=== PATIENT | female | born 1995 | race Caucasian/White ===

== ENCOUNTER 2016-10-26 17:03 | Emergency (ER) | payer MEDICAID ==
[2016-10-26 17:28] VITALS: BP 127/80
[2016-10-26] MEDS ORDERED: Diphtheria,Pertussis(Acell),Tetanus Vaccine 0.5 ML SDV IM ONE (18:47)
[2016-10-26] MEDS ORDERED: Bacitracin Oint 1 GM U/D Packet TOP ONE (19:43)
--- NOTE | 2016-10-26 19:43 | EDM.PDOC ---
ED HPI GENERAL MEDICAL PROBLEM - General Chief Complaint: Laceration Stated Complaint: CUT RT HAND Time Seen by Provider: 10/26/16 18:46 Source of Information: Reports: Patient History Limitations: Reports: No Limitations - History of Present Illness INITIAL COMMENTS - FREE TEXT/NARRATIVE: This patient was removing or opening a window when the glass broke and she got lacerations on her right wrist and right fifth finger. This happened just prior to arrival. Last tetanus about 2005. 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: Endocrine/Metabolic History: Reports: Hyperthyroidism - Infectious Disease History Infectious Disease History: Reports: Chicken Pox - Past Surgical History GI Surgical History: Reports: None Social & Family History - Family History Family Medical History: Noncontributory - Tobacco Use Smoking Status *Q: Never Smoker Years of Tobacco use: 10 Used Tobacco, but Quit: Yes Month Tobacco Last Used: dec Second Hand Smoke Exposure: No - Alcohol Use Days Per Week of Alcohol Use: 2 Number of Drinks Per Day: 4 Total Drinks Per Week: 8 - Recreational Drug Use Recreational Drug Use: No Drug Use in Last 12 Months: Yes Recreational Drug Type: Reports: Oxycodone ED ROS GENERAL - Review of Systems Review Of Systems: ROS reveals no pertinent complaints other than HPI. ED EXAM, SKIN/RASH Exam: See Below Exam Limited By: No Limitations General Appearance: Alert, WD/WN Extremities: Other (There is a laceration to the dorsum of the right wrist it's approximately 2 cm long, transverse, the proximal edge is a little bit roughened with a short T like extension proximally just a few millimeters. The wound is clean and superficial. There is a small arrowhead shaped flap to the dorsum of the right fifth finger it's over the PIP joint very superficial the point points proximally.) Neurological: No Motor/Sensory Deficits Course - Vital Signs Text/Narrative:: Procedure: Laceration repair Both lacerations were anesthetized with a total of approximately 3 mL of 1% plain lidocaine. The wound to the wrist was then scrubbed and copiously flushed with sterile water. It was palpated for any presence of any foreign body and there was none. The wound was then closed with a running 5-0 nylon with a single [id number] to bring the T together. Good cosmetic result. The small arrowhead shaped flap of the index finger was closed with a single stitch of 5- 0 nylon. Wounds were then cleaned some antibody ointment applied and then covered with a dressing. Wound care discussed. Last Recorded V/S: Last Vital Signs Temp 37.3 C 10/26/16 18:20 Pulse 127 H 10/26/16 18:20 Resp 16 10/26/16 18:20 BP 127/80 10/26/16 18:20 Pulse Ox 99 10/26/16 18:20 - Orders/Labs/Meds Orders: Active Orders 24 hr Category Date Time Status Vaccines to be Administered [RC] PER UNIT ROUTINE Care 10/26/16 18:47 Active Meds: Medications Discontinued Medications Generic Name Dose Route Start Last Admin Trade Name Freq PRN Reason Stop Dose Admin Diphtheria/Tetanus/Acell Pertussis 0.5 ml 10/26/16 18:47 10/26/16 19:18 Adacel IM 10/26/16 18:48 0.5 ml .ONCE ONE Administration Lidocaine HCl 5 ml 10/26/16 18:47 10/26/16 19:07 Xylocaine-Mpf 1% INJECT 10/26/16 18:48 5 ml ONETIME ONE Administration Departure - Departure Time of Disposition: 19:41 Disposition: Home, Self-Care 01 Condition: Fair Clinical Impression: Wrist laceration, Finger laceration - Discharge Information Forms: ED Department Discharge Additional Instructions: Remove the dressing tomorrow. Wash with soap and water. Apply antibiotic ointment and a small dressing. Repeat daily. See your doctor for any signs of infection. See your doctor for suture removal in 10 days - My Orders Last 24 Hours: My Active Orders 10/26/16 18:47 Vaccines to be Administered [RC] PER UNIT ROUTINE - Assessment/Plan Last 24 Hours: My Active Orders 10/26/16 18:47 Vaccines to be Administered [RC] PER UNIT ROUTINE
== END 2016-10-26 20:02 | disposition home or self-care (01) ==
LOC: JP.ED 17:03
DX: S61.511A Laceration without foreign body of right wrist, initial encounter (principal); S61.210A Laceration without foreign body of right index finger without damage to nail, initial encounter; K21.9 Gastro-esophageal reflux disease without esophagitis; E05.90 Thyrotoxicosis, unspecified without thyrotoxic crisis or storm; Z23 Encounter for immunization; Z88.1 Allergy status to other antibiotic agents; Z79.899 Other long term (current) drug therapy; W25.XXXA Contact with sharp glass, initial encounter
CPT/HCPCS: 12001; 90471; 90715; 99283; A4217

== ENCOUNTER 2018-09-24 01:37 | Inpatient (IN) | payer MEDICAID ==
[2018-09-24] MEDS ORDERED: fentaNYL 100 MCG/2 ML SDV IVPUSH PRN (02:00)
[2018-09-24] MEDS ORDERED: Sodium Chloride 0.9% 10 ML Syringe FLUSH PRN ×2 (02:00→02:36)
[2018-09-24] MEDS ORDERED: ePHEDrine 50 MG/ML SDV ONE (02:11)
--- NOTE | 2018-09-24 02:21 | PCM.LDHP ---
L&D History of Present Illness - General Date of Service: 09/24/18 (active labor) Admit Problem/Dx: Patient Status Order with Admit Dx/Problem 09/24/18 02:07 Patient Status [ADT] Routine Admission Diagnosis/Problem Admission Diagnosis/Problem Labor established Source of Information: Patient History Limitations: Reports: No Limitations - History of Present Illness Introduction:: 23 year old who is 38 weeks gestation, presents in active labor that started at 2300. ERIN 10/08/18. Labs HIV neg, GBS neg, ABO O neg, Rubella immune Timing/Duration: Reports: minutes: (2-3) Location, : Reports: Abdomen Quality: Reports: Pressure Severity: Severe Improves with: Reports: None Worsens with: Reports: None - Related Data Allergies/Adverse Reactions: Allergies Allergy/AdvReac Type Severity Reaction Status Date / Time erythromycin base Allergy Rash Verified 04/20/18 22:55 Home Medications: Home Meds PNV95/Ferrous Fumarate/FA [ Tablet] 1 each PO DAILY 08/12/15 [History] Methimazole [Tapazole] 1 tab PO DAILY 10/26/16 [History] Past Medical History - Past Health History Medical/Surgical History: Denies Medical/Surgical History Gastrointestinal History: Reports: GERD 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: : 2 Para: 1 LMP (Approximate): Endocrine/Metabolic History: Reports: Hyperthyroidism - Infectious Disease History Infectious Disease History: Reports: Chicken Pox - Past Surgical History GI Surgical History: Reports: None Endocrine Surgical History: Reports: None Social & Family History - Family History Family Medical History: Noncontributory - Caffeine Use Caffeine Use: Reports: Coffee, Tea H&P Review of Systems - Review of Systems: Review Of Systems: See Below General: Reports: No Symptoms HEENT: Reports: No Symptoms Pulmonary: Reports: No Symptoms Cardiovascular: Reports: No Symptoms Gastrointestinal: Reports: No Symptoms Genitourinary: Reports: No Symptoms Musculoskeletal: Reports: No Symptoms Skin: Reports: No Symptoms Psychiatric: Reports: No Symptoms Neurological: Reports: No Symptoms Hematologic/Lymphatic: Reports: No Symptoms Immunologic: Reports: No Symptoms L&D Exam - Exam Exam: See Below - OB Specific Fundal Height In cm: 37 Contraction Intensity: Strong Movement: Active Heart Tones: Present Heart Rate (FHR) Variability: Moderate (6-25 bmp) Presentation: Vertex Estimated Weight: 7 pounds - Middleton Score Middleton Score Cervix Position: Anterior [place] Score Consistency: Soft [place] Score Effacement: >80% [place] Score Dilation: 3-4 cm [place] Score 's Station: -1 ,0 [place] Score Total: 11 - Exam General: Alert, Oriented HEENT: PERRLA, Mucosa Moist & [place] Neck: Supple Lungs: Clear to Auscultation, Normal Respiratory Effort Cardiovascular: Regular Rate, Regular Rhythm GI/Abdominal Exam: Normal Bowel Sounds Rectal Exam: Normal Exam Genitourinary: Normal external exam, Cervical dilitation, Enlarged uterus Back Exam: Normal Inspection Extremities: Normal Inspection, No Pedal Edema, Normal Capillary Refill Skin: Warm Neurological: Cranial Nerves Intact Psychiatric: Alert, Normal Affect, Normal Mood - Patient Data Lab Results Last 24 hrs: Laboratory Results - last 24 hr 09/24/18 Range/Units 01:50 WBC 14.8 H (4.5-11.0) K/uL RBC 3.91 (3.30-5.50) M/uL Hgb 11.6 L (12.0-15.0) g/dL Hct 34.9 L (36.0-48.0) % MCV 89 (80-98) fL MCH 30 (27-31) pg MCHC 33 (32-36) % Plt Count 206 (150-400) K/uL Neut % (Auto) 70 H (36-66) % Lymph % (Auto) 20 L (24-44) % [place] % (Auto) 9 H (2-6) % Eos % (Auto) 1 L (2-4) % Baso % (Auto) 0 (0-1) % Result Diagrams: 09/24/18 01:50 - Problem List (1) SNOMED Code(s): 62369635 ICD Code: Z34.90 - ENCNTR FOR SUPRVSN OF NORMAL , UNSP, UNSP TRIMESTER Status: Acute Current Visit: Yes Qualifiers: Weeks of gestation: 38 weeks Qualified Code(s): Z3A.38 - 38 weeks gestation of (2) Active labor SNOMED Code(s): 670662192 ICD Code: [id number] - Status: Acute Current Visit: Yes Problem List Initiated/Reviewed/Updated: Yes Orders Last 24hrs: Active Orders 24 hr Category Date Time Status Patient Status [ADT] Routine ADT 09/24/18 02:07 Ordered Antiembolic Devices [RC] .Routine Care 09/24/18 02:09 Ordered Communication Order [RC] ASDIRECTED Care 09/24/18 02:07 Ordered Heart Tones [RC] PER UNIT ROUTINE Care 09/24/18 02:07 Ordered Non Stress Test [RC] Click to Edit Care 09/24/18 02:07 Ordered Notify Provider Vital Signs [RC] PRN Care 09/24/18 02:00 Ordered Notify Provider [RC] PRN Care 09/24/18 02:07 Ordered VTE/DVT Education [RC] Click to Edit Care 09/24/18 02:09 Ordered Vital Signs [RC] PER UNIT ROUTINE Care 09/24/18 02:07 Ordered DRUG SCREEN, URINE [URCHEM] Routine Lab 09/24/18 02:00 Ordered UA W/MICROSCOPIC [URIN] Routine Lab 09/24/18 02:00 Ordered Oxytocin/Normal Saline [Pitocin in NS 20 Units/1,000 ML Med 09/24/18 02:10 Ordered ] 20 unit in 1,000 ml IV ONETIME Sodium Chloride 0.9% [Saline Flush] Med 09/24/18 02:00 Ordered 10 ml FLUSH ASDIRECTED PRN fentaNYL [Sublimaze] Med 09/24/18 02:00 Ordered 100 mcg IVPUSH Q1H PRN DVT/VTE Prophylaxis Reflex [OM.PC] Routine Oth 09/24/18 02:00 Ordered Saline Lock Insert [OM.PC] Routine Oth 09/24/18 02:07 Ordered Resuscitation Status Routine Resus Stat 09/24/18 02:00 Ordered Medication Orders Fentanyl (Sublimaze) 100 mcg IVPUSH Q1H PRN PRN Reason: Pain (moderate 4-6) Oxytocin/Sodium Chloride (Pitocin In Ns 20 Units/1,000 Ml) 20 unit in 1,000 mls @ 999 mls/hr IV ONETIME ONE; Protocol Stop: 09/24/18 03:10 Sodium Chloride (Saline Flush) 10 ml FLUSH ASDIRECTED PRN PRN Reason: Keep Vein Open Assessment/Plan Comment:: 09/24/18 38 week IUP, active labor ancipitate a vaginal delivery O neg, rhogam given at 29 weeks GBS negative HIV neg Rubella immune
[2018-09-24] MEDS ORDERED: Ropivacaine 100 ML ONE (02:34)
[2018-09-24] MEDS ORDERED: ePHEDrine 50 MG/ML SDV IVPUSH PRN (02:36)
[2018-09-24] MEDS ORDERED: diphenhydrAMINE 50 MG/ML SDV IVPUSH PRN ×2 (02:36)
[2018-09-24] MEDS ORDERED: Naloxone 0.4 MG/ML SDV IVPUSH PRN (02:36)
--- NOTE | 2018-09-24 03:00 | PCM.PNLD ---
Labor Progress Note - VS & Meds Vital Signs: Last Vital Signs Temp 97.2 F 09/24/18 02:36 Pulse 60 09/24/18 02:36 Resp 16 09/24/18 02:36 BP 115/72 09/24/18 02:36 Pulse Ox 96 09/24/18 02:36 Active Medications: Current Medications Diphenhydramine HCl (Benadryl) 25 mg IVPUSH Q6H PRN PRN Reason: Itching Diphenhydramine HCl (Benadryl) 50 mg IVPUSH Q6H PRN PRN Reason: Itching Ephedrine Sulfate (Ephedrine Sulfate) 10 mg IVPUSH ASDIRECTED PRN PRN Reason: Hypotension Fentanyl (Sublimaze) 100 mcg IVPUSH Q1H PRN PRN Reason: Pain (moderate 4-6) Last Admin: 09/24/18 02:15 Dose: 100 mcg Oxytocin/Sodium Chloride (Pitocin In Ns 20 Units/1,000 Ml) 20 unit in 1,000 mls @ 999 mls/hr IV ONETIME ONE; Protocol Stop: 09/24/18 03:10 Naloxone HCl (Narcan) 0.1 mg IVPUSH ASDIRECTED PRN PRN Reason: Oversedation Sodium Chloride (Saline Flush) 10 ml FLUSH ASDIRECTED PRN PRN Reason: Keep Vein Open Sodium Chloride (Saline Flush) 10 ml FLUSH ASDIRECTED PRN PRN Reason: Keep Vein Open Discontinued Medications Ephedrine Sulfate (Ephedrine Sulfate) Confirm Administered Dose 50 mg .ROUTE .STK-MED ONE Stop: 09/24/18 02:12 Last Admin: 09/24/18 02:42 Dose: Not Given Ropivacaine (Naropin 0.2%) Confirm Administered Dose 100 mls @ as directed .ROUTE .STK-MED ONE Stop: 09/24/18 02:35 - Uterine Contractions Uterine Monitoring Mode: External [place] Contraction Frequency (min): 2-4 Contraction Intensity: Moderate to Strong Uterine Resting Tone: Soft - Monitoring Monitor Mode: Doppler/Auscultation Heart Rate (FHR) Baseline: 140 Heart Rate (FHR) Variability: Moderate (6-25 bmp) Accelerations: Present, 15x15 Decelerations: None Strip Review: Category I - Vaginal Exam Dilation (cm): 6 Effacement (Percent): 90 Station: 1 Cervical Position: Midposition Sterile Vaginal Exam Performed By: Bina Crockett - Labor Progress (Free Text) Labor Progress: active labor Epidural placed Cat one strip. planning for vaginal delivery
--- NOTE | 2018-09-24 04:53 | PCM.PNLD ---
Labor Progress Note - VS & Meds Vital Signs: Last Vital Signs Temp 97.2 F 09/24/18 02:36 Pulse 59 L 09/24/18 04:20 Resp 16 09/24/18 04:20 BP 98/57 L 09/24/18 04:20 Pulse Ox 99 09/24/18 04:20 Active Medications: Current Medications Diphenhydramine HCl (Benadryl) 25 mg IVPUSH Q6H PRN PRN Reason: Itching Diphenhydramine HCl (Benadryl) 50 mg IVPUSH Q6H PRN PRN Reason: Itching Ephedrine Sulfate (Ephedrine Sulfate) 10 mg IVPUSH ASDIRECTED PRN PRN Reason: Hypotension Fentanyl (Sublimaze) 100 mcg IVPUSH Q1H PRN PRN Reason: Pain (moderate 4-6) Last Admin: 09/24/18 02:15 Dose: 100 mcg Naloxone HCl (Narcan) 0.1 mg IVPUSH ASDIRECTED PRN PRN Reason: Oversedation Sodium Chloride (Saline Flush) 10 ml FLUSH ASDIRECTED PRN PRN Reason: Keep Vein Open Sodium Chloride (Saline Flush) 10 ml FLUSH ASDIRECTED PRN PRN Reason: Keep Vein Open Discontinued Medications Ephedrine Sulfate (Ephedrine Sulfate) Confirm Administered Dose 50 mg .ROUTE .STK-MED ONE Stop: 09/24/18 02:12 Last Admin: 09/24/18 02:42 Dose: Not Given Oxytocin/Sodium Chloride (Pitocin In Ns 20 Units/1,000 Ml) 20 unit in 1,000 mls @ 999 mls/hr IV ONETIME ONE; Protocol Stop: 09/24/18 03:10 Ropivacaine (Naropin 0.2%) Confirm Administered Dose 100 mls @ as directed .ROUTE .STK-MED ONE Stop: 09/24/18 02:35 - Uterine Contractions Uterine Monitoring Mode: External [place] Contraction Frequency (min): 2-4 Contraction Duration (sec): 90-110 Contraction Intensity: Strong Uterine Resting Tone: Soft - Monitoring Monitor Mode: Doppler/Auscultation Heart Rate (FHR) Baseline: 140 Heart Rate (FHR) Variability: Moderate (6-25 bmp) Accelerations: Present, 15x15 Decelerations: None Strip Review: Category I - Vaginal Exam Dilation (cm): 9 Effacement (Percent): 100 Station: 1 Cervical Position: Anterior Sterile Vaginal Exam Performed By: Evie Gallardo Vaginal Exam Comment: SROM clear fluid - Labor Progress (Free Text) Labor Progress: epidural working great. mother sleeping intermittently Cat one strip Delivery imitate
[2018-09-24] MEDS ORDERED: Benzocaine 20% Top Spray 56 GM Bottle TOP PRN (06:18)
[2018-09-24] MEDS ORDERED: Lanolin 100% Cream 40 GM Tube TOP PRN (06:18)
[2018-09-24] MEDS ORDERED: Witch Hazel Medicated Pads 100/Jar TOP PRN (06:18)
[2018-09-24] MEDS ORDERED: Acetaminophen 325 MG Tab, 50 Tab Bulk Bottle PO PRN ×2 (06:27→07:17)
[2018-09-24] MEDS ORDERED: Ibuprofen 200 MG Tab, 24 Tab Bulk Bottle PO PRN (06:27)
--- NOTE | 2018-09-24 06:30 | ANES ---
DATE OF SERVICE: 09/24/2018 Ms. Chavez is a 23-year-old female patient, referred to me by Mary Alice Gallardo. I was called to the Labor and Delivery unit to evaluate Ms. Chavez for a labor epidural. She is in active labor and this is her 2nd baby. Risks and benefits of the procedure were explained to the patient. She wished to proceed with a labor epidural. She was placed in a sitting position. Her back was prepped x3 with Betadine, 1% lidocaine skin local was used. The epidural was placed at L3-L4 using a 17-gauge Tuohy needle and loss of resistance technique. The epidural had very good feel throughout, and the epidural space was easily identified. There was negative CSF, negative blood, and negative paresthesias noted. Therefore, catheter was threaded to 13 cm at the skin. There was negative CSF, negative blood, and negative paresthesias in the catheter as well. A 3 mL test dose of 1.5% lidocaine with epinephrine was given and this test dose was negative. The patient was then placed in the supine position after the catheter was secured with Tegaderm and tape. 0.2% ropivacaine bolus of 10 mL was given. The initial bolus had good relief and her vital signs remained stable. Therefore, a 0.2% ropivacaine drip was started at 12 mL/h. She tolerated the procedure very nicely. Her vital signs remained stable throughout the procedure. Nurse was with me for the entire procedure. We will continue to monitor her throughout her Labor and Delivery stay. Deuce Cespedes CRNA /[id number]
--- NOTE | 2018-09-24 07:38 | PCM.DEL ---
L & D Note - General Info Date of Service: 09/24/18 (Childbirth) Mother's Due Date: 10/08/18 - Delivery Note Labor: Spontaneous Delivery Outcome: Livebirth Infant Delivery Method: Spontaneous Vaginal Delivery-Single Delivery Mode: Vacuum Extraction Presentation: Right Occiput Posterior (ROP) Nuchal Cord: Present, Reduced Anesthesia Type: Epidural Amniotic Fluid Description: Clear Episiotomy Type: None Laceration: Other (left labial abrasion) Placenta: Intact, Spontaneous Cord: 3 Vessels Estimated Blood Loss: 200 Resuscitation Needed: No Purcell: Stimulated, Warmed, Taylor Used Provider: Evie Gallardo Score 1 min: 9 Score 5 min: 9 Second Stage Interventions: Reports: Second Nurse Reviewed Contraction Pattern, Pushing Ineffectively, Pushing, McRobert's Position Delivery Comments (Free Text/Narrative):: 09/24/18 This 23 year old G2 now P1 who is 38 weeks gestation presented in active labor. Zita delivered a viable male infant in ROP with vacuum assisted delivery. A nuchal cord was present and reduced at time of delivery. He also had his left hand and arm presenting before his body. He was delivered onto mother's abdomen and he cried spontaneously, He was dried and stimulated, Apgars of 9 & 9, delayed cord clamping and active management of the third stage were also done. He was placed skin to skin The placenta was expressed spontaneously intact. no lacerations were found of the cervix, rectum, perineum. EBL 200cc Mother and baby to post in stable condition. First stage 2230-1130 Second stage 4512-7874 Third stage 3860-0862 Vacuum Extractor Progress Note - Alternative Labor Strategies Considered Alternative Labor Strategies Considered:: Reports: Yes Strategies Considered:: Reports: Contraction Intensity Adequate Indications Considered:: Reports: Yes Time Out:: Reports: Yes - Patient Prepared Patient Prepared:: Reports: Yes Informed Consent:: Reports: Verbal Risks Include:: Reports: Laceration, Shoulder Dystocia, Maternal Injury, Other Anesthesia/Analgesia Adequate:: Reports: Yes - Probability of Success High Probability of Success:: Reports: Yes Weight Estimated:: Reports: AGA Pelvis Adequate:: Reports: Yes Asynclitic:: Reports: No - Application Time Maximum Application Time & Number of Pop-Offs Predetermined:: Reports: Yes Type of Vacuum Used:: Reports: Cup: Mushroom type Vacuum Extraction: Successful - Exit Strategy Exit strategy available:: Reports: Yes and resuscitation teams readily available:: Reports: Yes - General Info Date of Service: 09/24/18 Functional Status: Reports: Pain Controlled - Review of Systems General: Reports: No Symptoms HEENT: Reports: No Symptoms Pulmonary: Reports: No Symptoms Cardiovascular: Reports: No Symptoms Gastrointestinal: Reports: No Symptoms Genitourinary: Reports: No Symptoms Musculoskeletal: Reports: No Symptoms Skin: Reports: No Symptoms Neurological: Reports: No Symptoms Psychiatric: Reports: No Symptoms - Patient Data Vitals - Most Recent: Last Vital Signs Temp 97.2 F 09/24/18 02:36 Pulse 59 L 09/24/18 04:20 Resp 16 09/24/18 04:20 BP 98/57 L 09/24/18 04:20 Pulse Ox 99 09/24/18 04:20 Weight - Most Recent: 131 lb Lab Results Last 24 Hours: Laboratory Results - last 24 hr 09/24/18 09/24/18 09/24/18 Range/Units 01:50 04:00 04:00 WBC 14.8 H (4.5-11.0) K/uL RBC 3.91 (3.30-5.50) M/uL Hgb 11.6 L (12.0-15.0) g/dL Hct 34.9 L (36.0-48.0) % MCV 89 (80-98) fL MCH 30 (27-31) pg MCHC 33 (32-36) % Plt Count 206 (150-400) K/uL Neut % (Auto) 70 H (36-66) % Lymph % (Auto) 20 L (24-44) % [place] % (Auto) 9 H (2-6) % Eos % (Auto) 1 L (2-4) % Baso % (Auto) 0 (0-1) % Urine Color Yellow Urine Appearance Clear Urine pH 8.0 (4.5-8.0) Ur Specific [place] 1.005 L (1.008-1.030) Urine Protein Negative (NEGATIVE) mg/dL Urine Glucose (UA) Normal (NEGATIVE) mg/dL Urine Ketones Negative (NEGATIVE) mg/dL Urine Occult Blood Negative (NEGATIVE) Urine Nitrite Negative (NEGATIVE) Urine Bilirubin Negative (NEGATIVE) Urine Urobilinogen Normal (NORMAL) mg/dL Ur Leukocyte Esterase Negative (NEGATIVE) Urine RBC 0-5 (0-5) Urine WBC 0-5 (0-5) Ur Epithelial Cells Rare Amorphous Sediment Not seen Urine Bacteria Few Urine Mucus Not seen Urine Opiates Screen Negative (NEGATIVE) Ur Oxycodone Screen Negative (NEGATIVE) Urine Methadone Screen Negative (NEGATIVE) Ur Propoxyphene Screen Negative (NEGATIVE) Ur Barbiturates Screen Negative (NEGATIVE) Ur Tricyclics Screen Negative (NEGATIVE) Ur Phencyclidine Scrn Negative (NEGATIVE) Ur Amphetamine Screen Negative (NEGATIVE) U Methamphetamines Scrn Negative (NEGATIVE) Urine MDMA Screen Negative (NEGATIVE) U Benzodiazepines Scrn Negative (NEGATIVE) U Cocaine Metab Screen Negative (NEGATIVE) U Marijuana (THC) Screen Negative (NEGATIVE) Med Orders - Current: Current Medications Acetaminophen (Tylenol Bulk Bottle) 325 - 650 mg PO Q4H PRN PRN Reason: Pain Benzocaine (Ddtw-G-[id number] 20% [place]) 0 gm TOP Q4H PRN PRN Reason: Perineal Comfort Measure Diphenhydramine HCl (Benadryl) 25 mg IVPUSH Q6H PRN PRN Reason: Itching Diphenhydramine HCl (Benadryl) 50 mg IVPUSH Q6H PRN PRN Reason: Itching Emollient Ointment (Lansinoh Hpa) 1 gm TOP ASDIRECTED PRN PRN Reason: Sore Nipples Ephedrine Sulfate (Ephedrine Sulfate) 10 mg IVPUSH ASDIRECTED PRN PRN Reason: Hypotension Fentanyl (Sublimaze) 100 mcg IVPUSH Q1H PRN PRN Reason: Pain (moderate 4-6) Last Admin: 09/24/18 02:15 Dose: 100 mcg Ibuprofen (Motrin Bulk Bottle) 600 mg PO Q6H PRN PRN Reason: Pain Naloxone HCl (Narcan) 0.1 mg IVPUSH ASDIRECTED PRN PRN Reason: Oversedation Sodium Chloride (Saline Flush) 10 ml FLUSH ASDIRECTED PRN PRN Reason: Keep Vein Open Sodium Chloride (Saline Flush) 10 ml FLUSH ASDIRECTED PRN PRN Reason: Keep Vein Open Witch Kate (Tucks) 1 pad TOP ASDIRECTED PRN PRN Reason: Hemorrhoids Discontinued Medications Ephedrine Sulfate (Ephedrine Sulfate) Confirm Administered Dose 50 mg .ROUTE .STK-MED ONE Stop: 09/24/18 02:12 Last Admin: 09/24/18 02:42 Dose: Not Given Oxytocin/Sodium Chloride (Pitocin In Ns 20 Units/1,000 Ml) 20 unit in 1,000 mls @ 999 mls/hr IV ONETIME ONE; Protocol Stop: 09/24/18 03:10 Ropivacaine (Naropin 0.2%) Confirm Administered Dose 100 mls @ as directed .ROUTE .STK-MED ONE Stop: 09/24/18 02:35 - Exam General: Alert, Oriented HEENT: Pupils Equal, Pupils Reactive Neck: Supple Lungs: Clear to Auscultation, Normal Respiratory Effort Cardiovascular: Regular Rate, Regular Rhythm GI/Abdominal Exam: Normal Bowel Sounds, Soft (Female) Exam: Normal External Exam, Enlarged Uterus, Vaginal Bleeding Back Exam: Normal Inspection Extremities: Normal Inspection, No Pedal Edema Skin: Warm Neurological: No New Focal Deficit Psy/Mental Status: Alert, Normal Affect - Problem List & Annotations (1) SNOMED Code(s): 19672453 Code(s): Z34.90 - ENCNTR FOR SUPRVSN OF NORMAL , UNSP, UNSP TRIMESTER Status: Acute Current Visit: Yes Qualifiers: Weeks of gestation: 38 weeks Qualified Code(s): Z3A.38 - 38 weeks gestation of (2) Active labor SNOMED Code(s): 748335249 Code(s): UEG9050 - Status: Acute Current Visit: Yes (3) Vaginal delivery SNOMED Code(s): 928404542 Code(s): O80 - ENCOUNTER FOR FULL-TERM UNCOMPLICATED DELIVERY Status: Acute Current Visit: Yes - Problem List Review Problem List Initiated/Reviewed/Updated: Yes - My Orders Last 24 Hours: My Active Orders 09/24/18 02:00 Notify Provider Vital Signs [RC] PRN Sodium Chloride 0.9% [Saline Flush] 10 ml FLUSH ASDIRECTED PRN fentaNYL [Sublimaze] 100 mcg IVPUSH Q1H PRN DVT/VTE Prophylaxis Reflex [OM.PC] Routine Resuscitation Status Routine 09/24/18 02:07 Communication Order [RC] ASDIRECTED Heart Tones [RC] PER UNIT ROUTINE Non Stress Test [RC] Click to Edit Notify Provider [RC] PRN Vital Signs [RC] PER UNIT ROUTINE Saline Lock Insert [OM.PC] Routine 09/24/18 02:09 Antiembolic Devices [RC] .Routine VTE/DVT Education [RC] Click to Edit 09/24/18 02:36 Communication Order [RC] ROUTINE Communication Order [RC] ROUTINE Communication Order [RC] ROUTINE Oxygen Therapy [RC] ASDIRECTED PCEA Epidural [RC] ASDIRECTED PCEA Epidural [RC] ASDIRECTED Peripheral IV Care [RC] . DIRECTED Pulse Oximetry [RC] ASDIRECTED Vital Signs [RC] PER UNIT ROUTINE Naloxone [Narcan] 0.1 mg IVPUSH ASDIRECTED PRN Sodium Chloride 0.9% [Saline Flush] 10 ml FLUSH ASDIRECTED PRN diphenhydrAMINE [Benadryl] 25 mg IVPUSH Q6H PRN diphenhydrAMINE [Benadryl] 50 mg IVPUSH Q6H PRN ePHEDrine [ePHEDrine sulfate] 10 mg IVPUSH ASDIRECTED PRN Epidural Catheter Management [OM.PC] Routine Peripheral IV Insertion Pediatric [OM.PC] Routine 09/24/18 06:18 Up ad Jazmine [RC] ASDIRECTED RHIG WORKUP, [BBK] Routine Benzocaine [Szgb-J-Vzmpvlg 20% [place]] See Dose Instructions TOP Q4H PRN Lanolin [Lansinoh HPA] 1 gm TOP ASDIRECTED PRN Witch Kate [Tucks] 1 pad TOP ASDIRECTED PRN Assess Lochia [WOMSER] Per Unit Routine Assess Uterine Involution [WOMSER] Per Unit Routine 09/24/18 06:23 Patient Status [ADT] Routine Vital Signs [RC] PFP 09/24/18 06:24 Ice Therapy [OM.PC] Per Unit Routine Perineal Care [OM.PC] Per Unit Routine Peripheral IV Discontinue [OM.PC] Routine Sitz Bath [OM.PC] Per Unit Routine 09/24/18 06:27 Ibuprofen [Motrin Bulk Bottle] 600 mg PO Q6H PRN 09/24/18 07:17 Acetaminophen [Tylenol Bulk Bottle] 325 - 650 mg PO Q4H PRN 09/24/18 Breakfast Regular Diet [DIET] 09/25/18 05:11 CBC WITH AUTO DIFF [HEME] AM - Assessment Assessment:: 09/24/18 23 yr old with vacuum assist, ROP - Plan Plan:: 09/24/18 38 week IUP, active labor ancipitate a vaginal delivery O neg, rhogam given at 29 weeks GBS negative HIV neg Rubella immune 09/24/18 Routine post care. support breast feeding 24-48 hour stay
--- NOTE | 2018-09-25 08:43 | PCM.PNPP ---
- General Info Date of Service: 09/25/18 Functional Status: Reports: Pain Controlled - Review of Systems General: Reports: No Symptoms HEENT: Reports: No Symptoms Pulmonary: Reports: No Symptoms Cardiovascular: Reports: No Symptoms Gastrointestinal: Reports: No Symptoms Genitourinary: Reports: No Symptoms Musculoskeletal: Reports: No Symptoms Skin: Reports: No Symptoms Neurological: Reports: No Symptoms Psychiatric: Reports: No Symptoms - General Info Date of Service: 09/25/18 - Patient Data Vital Signs - Most Recent: Last Vital Signs Temp 35.9 C 09/25/18 03:54 Pulse 58 L 09/25/18 03:54 Resp 16 09/25/18 03:54 BP 94/56 L 09/25/18 03:54 Pulse Ox 99 09/25/18 03:54 Weight - Most Recent: 59.421 kg I&O - Last 24 Hours: Intake & Output 09/24/18 09/25/18 09/25/18 22:59 06:59 14:59 Intake Total 1000 Balance 1000 Lab Results - Last 24 Hours: Laboratory Results - last 24 hr 09/25/18 Range/Units 06:17 WBC 14.0 H (4.5-11.0) K/uL RBC 3.42 (3.30-5.50) M/uL Hgb 10.2 L (12.0-15.0) g/dL Hct 31.3 L (36.0-48.0) % MCV 92 (80-98) fL MCH 30 (27-31) pg MCHC 33 (32-36) % Plt Count 174 (150-400) K/uL Neut % (Auto) 71 H (36-66) % Lymph % (Auto) 18 L (24-44) % [place] % (Auto) 9 H (2-6) % Eos % (Auto) 2 (2-4) % Baso % (Auto) 0 (0-1) % Med Orders - Current: Current Medications Acetaminophen (Tylenol Bulk Bottle) 325 - 650 mg PO Q4H PRN PRN Reason: Pain Last Admin: 09/24/18 09:31 Dose: 650 mg Benzocaine ([place]-R-Boyicmx 20% [place]) 0 gm TOP Q4H PRN PRN Reason: Perineal Comfort Measure Diphenhydramine HCl (Benadryl) 25 mg IVPUSH Q6H PRN PRN Reason: Itching Diphenhydramine HCl (Benadryl) 50 mg IVPUSH Q6H PRN PRN Reason: Itching Emollient Ointment (Lansinoh Hpa) 1 gm TOP ASDIRECTED PRN PRN Reason: Sore Nipples Ephedrine Sulfate (Ephedrine Sulfate) 10 mg IVPUSH ASDIRECTED PRN PRN Reason: Hypotension Fentanyl (Sublimaze) 100 mcg IVPUSH Q1H PRN PRN Reason: Pain (moderate 4-6) Last Admin: 09/24/18 02:15 Dose: 100 mcg Ibuprofen (Motrin Bulk Bottle) 600 mg PO Q6H PRN PRN Reason: Pain Last Admin: 09/24/18 09:30 Dose: 600 mg Naloxone HCl (Narcan) 0.1 mg IVPUSH ASDIRECTED PRN PRN Reason: Oversedation Sodium Chloride (Saline Flush) 10 ml FLUSH ASDIRECTED PRN PRN Reason: Keep Vein Open Sodium Chloride (Saline Flush) 10 ml FLUSH ASDIRECTED PRN PRN Reason: Keep Vein Open Witch Kate (Tucks) 1 pad TOP ASDIRECTED PRN PRN Reason: Hemorrhoids Discontinued Medications Ephedrine Sulfate (Ephedrine Sulfate) Confirm Administered Dose 50 mg .ROUTE .STK-MED ONE Stop: 09/24/18 02:12 Last Admin: 09/24/18 02:42 Dose: Not Given Oxytocin/Sodium Chloride (Pitocin In Ns 20 Units/1,000 Ml) 20 unit in 1,000 mls @ 999 mls/hr IV ONETIME ONE; Protocol Stop: 09/24/18 03:10 Last Admin: 09/24/18 05:40 Dose: 999 mls/hr, 999 mls/hr Ropivacaine (Naropin 0.2%) Confirm Administered Dose 100 mls @ as directed .ROUTE .STK-MED ONE Stop: 09/24/18 02:35 - Interaction Infant Disposition, : [place] in Room with Family Interaction: Holding Infant Infant Feeding: Breastfed ; Nursed Well Support Person: Significant Other - Recovery Exam Fundal Tone: Firm Fundal Level: 1 Fingerbreadths Below Umbilicus Fundal Placement: Midline Lochia Amount: Small Lochia Color: Rubra/Red Perineum Description: Intact, Minimal Bruising/Swelling Episiotomy/Laceration: None Bladder Status: Voiding - Exam General: Alert, Oriented, Cooperative HEENT: Pupils Equal Neck: Supple Lungs: Clear to Auscultation, Normal Respiratory Effort Cardiovascular: Regular Rate, Regular Rhythm GI/Abdominal Exam: Normal Bowel Sounds, Soft, Non-Tender, No Organomegaly, No Distention, No Abnormal Bruit, No Mass, Pelvis Stable Extremities: Normal Inspection, Normal Range of Motion, Non-Tender, No Pedal Edema, Normal Capillary Refill Skin: Warm, Dry, Intact Neurological: No New Focal Deficit Psy/Mental Status: Alert, Normal Affect, Normal Mood - Problem List & Annotations (1) (infant) SNOMED Code(s): 001215941 Code(s): Z78.9 - OTHER SPECIFIED HEALTH STATUS Status: Acute Current Visit: Yes (2) Vacuum-assisted vaginal delivery SNOMED Code(s): 49225834350399396 Code(s): Z37.9 - OUTCOME OF DELIVERY, UNSPECIFIED Status: Acute Current Visit: Yes (3) Vaginal delivery SNOMED Code(s): 369282076 Code(s): O80 - ENCOUNTER FOR FULL-TERM UNCOMPLICATED DELIVERY Status: Acute Current Visit: Yes - Problem List Review Problem List Initiated/Reviewed/Updated: Yes - Assessment Assessment:: 09/24/18 23 yr old with vacuum assist, ROP 09/25/2018 day one well Fundus firm and bleeding decreasing Happy with delivery - Plan Plan:: 09/24/18 38 week IUP, active labor ancipitate a vaginal delivery O neg, rhogam given at 29 weeks GBS negative HIV neg Rubella immune 09/24/18 Routine post care. support breast feeding 24-48 hour stay 09/25/2018 Continue routine care Continue to support and encourage discharge tomorrow
--- NOTE | 2018-09-26 08:24 | PCM.PNPP ---
- General Info Date of Service: 09/26/18 Functional Status: Reports: Pain Controlled - Review of Systems General: Reports: No Symptoms HEENT: Reports: No Symptoms Pulmonary: Reports: No Symptoms Cardiovascular: Reports: No Symptoms Gastrointestinal: Reports: No Symptoms Genitourinary: Reports: No Symptoms Musculoskeletal: Reports: No Symptoms Skin: Reports: No Symptoms Neurological: Reports: No Symptoms Psychiatric: Reports: No Symptoms - General Info Date of Service: 09/26/18 - Patient Data Vital Signs - Most Recent: Last Vital Signs Temp 36.4 C 09/25/18 22:41 Pulse 58 L 09/25/18 22:41 Resp 18 09/25/18 22:41 BP 103/66 09/25/18 22:41 Pulse Ox 9 L 09/25/18 22:41 Weight - Most Recent: 59.421 kg I&O - Last 24 Hours: Intake & Output 09/25/18 09/26/18 09/26/18 22:59 06:59 14:59 Intake Total 240 450 Balance 240 450 Med Orders - Current: Current Medications Acetaminophen (Tylenol Bulk Bottle) 325 - 650 mg PO Q4H PRN PRN Reason: Pain Last Admin: 09/24/18 09:31 Dose: 650 mg Benzocaine (Wjct-P-Hmaaqym 20% [place]) 0 gm TOP Q4H PRN PRN Reason: Perineal Comfort Measure Diphenhydramine HCl (Benadryl) 25 mg IVPUSH Q6H PRN PRN Reason: Itching Diphenhydramine HCl (Benadryl) 50 mg IVPUSH Q6H PRN PRN Reason: Itching Emollient Ointment (Lansinoh Hpa) 1 gm TOP ASDIRECTED PRN PRN Reason: Sore Nipples Last Admin: 09/26/18 02:31 Dose: 1 applic Ephedrine Sulfate (Ephedrine Sulfate) 10 mg IVPUSH ASDIRECTED PRN PRN Reason: Hypotension Fentanyl (Sublimaze) 100 mcg IVPUSH Q1H PRN PRN Reason: Pain (moderate 4-6) Last Admin: 09/24/18 02:15 Dose: 100 mcg Ibuprofen (Motrin Bulk Bottle) 600 mg PO Q6H PRN PRN Reason: Pain Last Admin: 09/24/18 09:30 Dose: 600 mg Naloxone HCl (Narcan) 0.1 mg IVPUSH ASDIRECTED PRN PRN Reason: Oversedation Sodium Chloride (Saline Flush) 10 ml FLUSH ASDIRECTED PRN PRN Reason: Keep Vein Open Sodium Chloride (Saline Flush) 10 ml FLUSH ASDIRECTED PRN PRN Reason: Keep Vein Open Witch Kate (Tucks) 1 pad TOP ASDIRECTED PRN PRN Reason: Hemorrhoids Discontinued Medications Ephedrine Sulfate (Ephedrine Sulfate) Confirm Administered Dose 50 mg .ROUTE .STK-MED ONE Stop: 09/24/18 02:12 Last Admin: 09/24/18 02:42 Dose: Not Given Oxytocin/Sodium Chloride (Pitocin In Ns 20 Units/1,000 Ml) 20 unit in 1,000 mls @ 999 mls/hr IV ONETIME ONE; Protocol Stop: 09/24/18 03:10 Last Admin: 09/24/18 05:40 Dose: 999 mls/hr, 999 mls/hr Ropivacaine (Naropin 0.2%) Confirm Administered Dose 100 mls @ as directed .ROUTE .[employer]-MED ONE Stop: 09/24/18 02:35 - Interaction Disposition, : [place] in Room with Family Infant Interaction: Holding Infant Infant Feeding: Breastfed ; Nursed Well Support Person: Significant Other - Recovery Exam Fundal Tone: Firm Fundal Level: 1 Fingerbreadths Below Umbilicus Fundal Placement: Midline Lochia Amount: Small Lochia Color: Rubra/Red Perineum Description: Intact, Minimal Bruising/Swelling Episiotomy/Laceration: None Bladder Status: Voiding - Exam General: Alert, Oriented HEENT: Pupils Equal Neck: Supple Lungs: Clear to Auscultation, Normal Respiratory Effort Cardiovascular: Regular Rate, Regular Rhythm GI/Abdominal Exam: Normal Bowel Sounds, Soft, Non-Tender, No Organomegaly, No Distention, No Abnormal Bruit, No Mass, Pelvis Stable Extremities: Normal Inspection, Normal Range of Motion, Non-Tender, No Pedal Edema, Normal Capillary Refill Skin: Warm, Dry, Intact Neurological: No New Focal Deficit Psy/Mental Status: Alert, Normal Affect, Normal Mood - Problem List & Annotations (1) () SNOMED Code(s): 937242986 Code(s): Z78.9 - OTHER SPECIFIED HEALTH STATUS Status: Acute Current Visit: Yes (2) Vacuum-assisted vaginal delivery SNOMED Code(s): 29911071587275038 Code(s): Z37.9 - OUTCOME OF DELIVERY, UNSPECIFIED Status: Acute Current Visit: Yes (3) Vaginal delivery SNOMED Code(s): 553877811 Code(s): O80 - ENCOUNTER FOR FULL-TERM UNCOMPLICATED DELIVERY Status: Acute Current Visit: Yes - Problem List Review Problem List Initiated/Reviewed/Updated: Yes - Assessment Assessment:: 09/24/18 23 yr old with vacuum assist, ROP 09/25/2018 day one well Fundus firm and bleeding decreasing Happy with delivery 09/26/2018 day two well Fundus firm and bleeding decreasing discharge home today - Plan Plan:: 09/24/18 38 week IUP, active labor ancipitate a vaginal delivery O neg, rhogam given at 29 weeks GBS negative HIV neg Rubella immune 09/24/18 Routine post care. support breast feeding 24-48 hour stay 09/25/2018 Continue routine care Continue to support and encourage discharge tomorrow 09/26/2018 Continue routine care Continue to support and encourage discharge today To see Evie for six week
[2018-09-26 08:33] VITALS: BP 100/63; PULSE 80
== END 2018-09-26 10:44 | disposition home or self-care (01) | DRG 807 ==
LOC: JP.OBCHECK 01:37 → JP.OB 01:42 → OBSVTOIN 05:39 → JP.MS 11:28
PROVIDERS: ADMIT Nurse Practitioner Family; ATTEND Nurse Practitioner Family
PROC: 10D07Z6 Extraction of Products of Conception, Vacuum, Via Natural or Artificial Opening (ICD-10-PCS; principal; 2018-09-24)
PROC: 00HU33Z Insertion of Infusion Device into Spinal Canal, Percutaneous Approach (ICD-10-PCS; 2018-09-24)
PROC: 3E0R3BZ Introduction of Anesthetic Agent into Spinal Canal, Percutaneous Approach (ICD-10-PCS; 2018-09-24)
DX: O99.284 Endocrine, nutritional and metabolic diseases complicating childbirth (principal); Z37.0 Single live birth; Z3A.38 38 weeks gestation of pregnancy; E05.90 Thyrotoxicosis, unspecified without thyrotoxic crisis or storm; O99.62 Diseases of the digestive system complicating childbirth; K21.9 Gastro-esophageal reflux disease without esophagitis; O69.81X0 Labor and delivery complicated by cord around neck, without compression, not applicable or unspecified; O64.0XX0 Obstructed labor due to incomplete rotation of fetal head, not applicable or unspecified; O32.6XX0 Maternal care for compound presentation, not applicable or unspecified; Z88.1 Allergy status to other antibiotic agents; Z79.899 Other long term (current) drug therapy
CPT/HCPCS: 36415; 59409; 80305-QW; 81001; 85025; 99211; A9270-GY; J2590; J2795; J3010

== ENCOUNTER 2018-10-01 19:33 | Emergency (ER) | payer MEDICAID ==
[2018-10-01 20:21] VITALS: BP 128/80; PULSE 81
--- NOTE | 2018-10-01 22:09 | EDM.PDOC ---
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 The last 2 days her bleeding has been alot heavier. Onset: Gradual, Other (last 2 days.) Duration: Hour(s): Location: Reports: Abdomen Associated Symptoms: Reports: No Other Symptoms Treatments PCU RN: Reports: Other (see below) Other Treatments PCU RN: unkown Lower Abdominal Pain Score (Numeric/FACES): 5 - Related Data Allergies Allergy/AdvReac Type Severity Reaction Status Date / Time erythromycin base Allergy Rash Verified 04/20/18 22:55 Home Meds: Home Meds PNV95/Ferrous Fumarate/FA [ Tablet] 1 each PO DAILY 08/12/15 [History] Past Medical History - Past Health History Medical/Surgical History: Denies Medical/Surgical History Gastrointestinal History: Reports: GERD 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: Endocrine/Metabolic History: Reports: Hyperthyroidism - Infectious Disease History Infectious Disease History: Reports: Chicken Pox - Past Surgical History GI Surgical History: Reports: None Endocrine Surgical History: Reports: None Social & Family History - Family History Family Medical History: Noncontributory - Tobacco Use Smoking Status *Q: Never Smoker - Caffeine Use Caffeine Use: Reports: Coffee, Soda - Recreational Drug Use Recreational Drug Use: No ED ROS GENERAL - Review of Systems Review Of Systems: See Below Constitutional: Reports: No Symptoms HEENT: Reports: No Symptoms Respiratory: Reports: No Symptoms Cardiovascular: Reports: No Symptoms Endocrine: Reports: No Symptoms GI/Abdominal: Reports: No Symptoms : Reports: No Symptoms, Other (pt had some heavier post bleeding the last 2 days. She has been alot more active. ) Skin: Reports: No Symptoms Neurological: Reports: No Symptoms ED EXAM, GI/ABD - Physical Exam Exam: See Below Text/Narrative:: pt arrived with heavier vag bleeding post . Exam Limited By: No Limitations General Appearance: Alert, Anxious, Mild Distress Ears: Normal TMs Nose: Normal Inspection Throat/Mouth: Normal Inspection Head: Atraumatic Neck: Normal Inspection Respiratory/Chest: No Respiratory Distress Cardiovascular: Regular Rate, Rhythm GI/Abdominal Exam: Other (no tenderness) (Female) Exam: Other (pelvic exam did not show alot of clots. She is not bleeding heavily. ) Course - Vital Signs Last Recorded V/S: Last Vital Signs Temp 37.0 C 10/01/18 20:20 Pulse 81 10/01/18 20:20 Resp 14 10/01/18 20:20 BP 128/80 10/01/18 20:20 Pulse Ox 97 10/01/18 20:20 - Orders/Labs/Meds Labs: Laboratory Tests 10/01/18 Range/Units 21:09 Hgb 12.5 D (12.0-15.0) g/dL - Re-Assessments/Exams Free Text/Narrative Re-Assessment/Exam: 10/01/18 22:15 hg is 12.5. Departure - Departure Time of Disposition: 22:07 Disposition: Home, Self-Care 01 Condition: Fair Clinical Impression: Vaginal bleeding problems - Discharge Information Referrals: Evie Gallardo CNM [Primary Care Provider] - Forms: ED Department Discharge Care Plan Goals: pt devlivered on the and her bleeding is heavier-- decrease activity for the next 2 days, if bleeding should get alot heavier rtc otherwise keep in contact with Niru Gallardo
== END 2018-10-01 22:24 | disposition home or self-care (01) ==
LOC: JP.ED 19:33
DX: O72.1 Other immediate postpartum hemorrhage (principal); Z88.1 Allergy status to other antibiotic agents; Z79.899 Other long term (current) drug therapy
CPT/HCPCS: 36415; 85018; 99282; 99284

== ENCOUNTER 2024-12-14 11:22 | Emergency (ER) | payer MEDICAID ==
[2024-12-14 12:20] VITALS: BP 127/76; PULSE 71
== END 2024-12-14 13:01 | disposition home or self-care (01) ==
LOC: JP.ED 11:22
DX: L23.7 Allergic contact dermatitis due to plants, except food (principal); Z88.8 Allergy status to other drugs, medicaments and biological substances
CPT/HCPCS: 99283